=== PATIENT | female | born 1980 | race Caucasian/White ===

== ENCOUNTER → 2016-09-09 | Outpatient (CLI) | payer BC, OTHER ==
[~2016-09-09] MED LIST: HYDR-3583 PO; HYDR1CAP2 PO; HYDR1TAB PO; IBP800T PO; KETO-22 PO; L-NO1TBD PO; SULF1TAB38 PO; TRAM50TA2 PO
--- NOTE | 2016-09-09 16:06 | Diagnostic Imaging Report ---
Exam: Left breast diagnostic mammogram. Indication: Left breast lump. Findings: There is a marker at the medial upper aspect of the left breast with no underlying lesion seen at the area of palpable lump. Scattered fibroglandular densities are noted in the left breast. No mammographic evidence of malignancy. Impression: Negative study. Ultrasound evaluation is pending. BI-RADS 0. ACR BI-RADS Category 0: Incomplete. (Needs additional imaging evaluation). Result letter will be mailed to the patient. Note: At least 10% of breast cancer is not imaged by mammography. Dictated by: Dictated on workstation # [id number]
--- NOTE | 2016-09-10 16:22 | RADIOLOGY REPORT ---
NAME: RAEGAN GONZALEZ [facility] REC#: [id number] PT STATUS: REG CLI : 1980 PHYSICIAN: AMERICA JOHNSON MD ADMIT DATE: 09/09/16/RAD CORRECTED, SEE ADDENDUM Signed Date of Exam:09/09/16 US BREAST LIMITED RIGHT Exam: Right breast ultrasound. Indication: Right breast lump. History of draining wound. Findings: There are hyperechoic lobulated lesions, the largest at 10:00 o'clock zone 12 cm from the nipple measuring 2.9 x 1.1 x 2.6 cm. It does not appear to have a mass effect on the adjacent tissues and is likely related to fat necrosis or from inflammation rather than a true mass. Similar finding is seen at adjacent location around 10:00 zone, smaller than the dominant lesion. At 9:00 o'clock, 12 cm from the nipple there is a well-defined oval hypoechoic lesion with no significant shadowing and with question of increased through-transmission measuring 1.1 x 0.4 x 0.9 cm. This could be a complicated cyst with mild internal debris. Impression: Findings at the 10:00 zone may relate to an element of inflammation or fat necrosis, and lesion at 9:00 o'clock zone is favored to be a complicated cyst. SIx month followup ultrasound to ensure stability or resolution is recommended. BI-RADS 3. ACR BI-RADS Category 3: Probably benign findings. Result letter will be mailed to the patient. Note: At least 10% of breast cancer is not imaged by mammography. Dictated by: Dictated on workstation # [id number] Dict: 09/09/16 0910 Trans: 09/09/16 1617 [facility] [id number] Interpreted by: MOHIT CHENEY MD Electronically signed by: MOHIT CHENEY MD 09/09/16 8290 ADDENDUM REPORT Correction the breast was scanned with the left side (not right side) A corrected the report is as follows: Exam: Left breast ultrasound. Indication: Left breast lump. History of draining wound. Findings: There are hyperechoic lobulated lesions, the largest at 10:00 o'clock zone 12 cm from the nipple measuring 2.9 x 1.1 x 2.6 cm. It does not appear to have a mass effect on the adjacent tissues and is likely related to fat necrosis or from inflammation rather than a true mass. Similar finding is seen at adjacent location around 10:00 zone, smaller than the dominant lesion. At 9:00 o'clock, 12 cm from the nipple there is a well-defined oval hypoechoic lesion with no significant shadowing and with question of increased through-transmission measuring 1.1 x 0.4 x 0.9 cm. This could be a complicated cyst with mild internal debris. Impression: Findings at the 10:00 zone may relate to an element of inflammation or fat necrosis, and lesion at 9:00 o'clock zone is favored to be a complicated cyst. Six month followup ultrasound to ensure stability or resolution is recommended. BI-RADS 3. ACR BI-RADS Category 3: Probably benign findings. Result letter will be mailed to the patient. Note: At least 10% of breast cancer is not imaged by mammography. Dictated by: Dictated on workstation # [id number] Interpreted by: MOHIT CHENEY MD Electronically signed by: MOHIT CHENEY MD 09/10/16 0936 MTDD
== END ==
LOC: RAD 07:57
PROVIDERS: ATTEND Family Medicine
DX: N63 Unspecified lump in breast (principal)
CPT/HCPCS: 76642